=== PATIENT | male | born 1995 | race Caucasian/White ===

== ENCOUNTER 2017-10-05 09:43 | Emergency (ER) | payer OTHER ==
[2017-10-05] MEDS ORDERED: DEXAMETHASONE 10 MG/ML VIAL PO STA (10:40)
--- NOTE | 2017-10-05 10:54 | ED Physician Documentation ---
History of Present Illness - Stated complaint Stated Complaint: SORE THROAT - Chief complaint Chief Complaint: Heent - Additonal information Additional information: hx from pt 21 male sore throat X 3 days no fever no ear pain no cough no NVD Review of Systems Constitutional: denies: Fever Ears: denies: Ear pain Throat: reports: Sore throat Respiratory: denies: Cough GI: denies: Nausea, Vomiting, Diarrhea Immunocompromised: denies: Immunocompromised PD PAST MEDICAL HISTORY - Past Medical History Past Medical History: No - Past Surgical History Past Surgical History: Yes - Present Medications Home Medications: Ambulatory Orders Medication Instructions Recorded Confirmed Amoxicillin 500 mg PO Q8H #30 capsule 10/05/17 - Allergies Allergies/Adverse Reactions: Allergies Allergy/AdvReac Type Severity Reaction Status Date / Time shellfish derived Allergy Hives Verified 10/05/17 09:56 silver Allergy Rash Verified 10/05/17 09:56 - Social History Does the pt smoke?: Yes Smoking Status: Current every day smoker Does the pt drink ETOH?: No Does the pt have substance abuse?: No - Immunizations Immunizations are current?: Yes PD ED PE NORMAL - Vitals Vital signs reviewed: Yes - HEENT HEENT: Atraumatic, Moist mucous membranes. No: Pharynx benign (markedly enlarged erythematous tonsils with exudate, no trismus, no [employer]) - Neck Neck: Supple, no meningeal sign. No: No adenopathy (mild anterior no pasterior) - Cardiac Cardiac: RRR - Respiratory Respiratory: No respiratory distress, Clear bilaterally - Abdomen Abdomen: Non tender, No organomegaly Results - Vitals Vitals: Vital Signs - 24 hr 10/05/17 09:53 Temperature 37.3 C Heart Rate 83 Respiratory 16 Rate Blood Pressure 116/70 O2 Saturation 99 Oxygen O2 Source Room air - Labs Labs: Laboratory Tests 10/05/17 10:24 Group A Strep Rapid Negative PD MEDICAL DECISION MAKING - ED course ED course: pt meets all centor criteria for strep so will tx Departure - Departure Disposition: 01 Home, Self Care Clinical Impression: Pharyngitis Qualifiers: Pharyngitis/tonsillitis etiology: unspecified etiology Qualified Code(s): J02.9 - Acute pharyngitis, unspecified Condition: Good Instructions: ED Strep Pharyngitis Poss Prescriptions: Amoxicillin 500 mg PO Q8H #30 capsule Comments: The rapid strep test was negative but you have all the clinical criteria for strep throat so I have prescribed antibiotics The steroids we gave you in the ER should help decrease the pain and swelling Rest and drink plenty of fluids Motrin tylenol and throat lozenges as needed for pain Follow up PMD as neded Return if worse
[2017-10-05 11:16] VITALS: BP 110/76
== END 2017-10-05 11:15 | disposition home or self-care (01) ==
LOC: ED 09:43
DX: J02.9 Acute pharyngitis, unspecified (principal); F17.200 Nicotine dependence, unspecified, uncomplicated
CPT/HCPCS: 87070; 87077; 87430; 99283

== ENCOUNTER 2018-04-07 12:25 | Emergency (ER) | payer OTHER ==
[2018-04-07] MEDS ORDERED: KETOROLAC 60 MG/2 ML VIAL IM STA (13:16)
--- NOTE | 2018-04-07 13:26 | XRAY Report ---
Reason: Trauma Procedure Date: 04/07/2018 Accession Number: [id number] / [id number] Procedure: XR - Knee 4 View RT CPT Code: FULL RESULT: EXAM: RIGHT KNEE RADIOGRAPHY EXAM DATE: 04/07/2018 01:11 PM. CLINICAL HISTORY: Trauma. COMPARISON: None. TECHNIQUE: 4 views. FINDINGS: Bones: There are findings of previous knee surgery with a metallic surgical structure lateral to the lateral femoral condyle. No cortical step-off or acute fracture. Joints: There is a moderate to large sized joint effusion. There is no dislocation. Soft Tissues: Otherwise unremarkable. IMPRESSION: Moderate to large joint effusion. No acute fracture. RADIA
--- NOTE | 2018-04-07 14:27 | ED Physician Documentation ---
History of Present Illness - Stated complaint Stated Complaint: LEG PX/2ND GLF - Chief complaint Chief Complaint: Ext Problem - Additonal information Additional information: hx from pt 9 weeks s/p ACL surgery [facility] fell on stairs and hyperflexed his knee sig pain and swelling no other injury Review of Systems Musculoskeletal: reports: Joint pain PD PAST MEDICAL HISTORY - Past Medical History Past Medical History: No - Past Surgical History Past Surgical History: Yes Ortho: ACL reconstruction - Present Medications Home Medications: Ambulatory Orders Medication Instructions Recorded Confirmed Amoxicillin 500 mg PO Q8H #30 capsule 10/05/17 Ibuprofen [Motrin] 800 mg PO Q8H PRN #30 tablet 04/07/18 - Allergies Allergies/Adverse Reactions: Allergies Allergy/AdvReac Type Severity Reaction Status Date / Time shellfish derived Allergy Hives Verified 04/07/18 12:35 silver Allergy Rash Verified 04/07/18 12:35 - Social History Does the pt smoke?: No Smoking Status: Former smoker Does the pt drink ETOH?: No Does the pt have substance abuse?: No - Immunizations Immunizations are current?: Yes - POLST Patient has POLST: No PD ED PE NORMAL - Vitals Vital signs reviewed: Yes - Extremities Extremities: Other (R knee: + effusion, ACL endpoint, painful ROM, no deformity, MSV intact) Results - Vitals Vitals: Vital Signs - 24 hr 04/07/18 12:33 Temperature 36.7 C Heart Rate 93 Respiratory 16 Rate Blood Pressure 124/86 H O2 Saturation 98 Oxygen O2 Source Room air - Rads (name of study) knee Radiology: See rad report (large joint effusion, no fx) PD MEDICAL DECISION MAKING - Sepsis Event Vital Signs: Vital Signs - 24 hr 04/07/18 12:33 Temperature 36.7 C Heart Rate 93 Respiratory 16 Rate Blood Pressure 124/86 H O2 Saturation 98 Oxygen O2 Source Room air Departure - Departure Disposition: 01 Home, Self Care Clinical Impression: Knee sprain Qualifiers: Encounter type: initial encounter Involved ligament of knee: unspecified ligament Laterality: right Qualified Code(s): S83.91XA - Sprain of unspecified site of right knee, initial encounter Condition: Good Instructions: ED Sprain Knee Follow-Up: HALEY Pandya [Provider Group] Prescriptions: Ibuprofen [Motrin] 800 mg PO Q8H PRN #30 tablet PRN Reason: Pain Comments: The ACL feels intact on exam and the xray shows no bony damage Recommend and CHHAYA wrap ice and elevation to decrease the swelling Motrin 800 mg with breakfast lunch and dinner as needed for the pain Crutches to minimize weight bearing stress until able to walk comfortably. Follow up with your youth specialist Forms: Activity restrictions
[2018-04-07 14:44] VITALS: BP 128/80
== END 2018-04-07 14:53 | disposition home or self-care (01) ==
LOC: ED 12:25
DX: S83.91XA Sprain of unspecified site of right knee, initial encounter (principal); Z87.891 Personal history of nicotine dependence; Z98.890 Other specified postprocedural states; W10.9XXA Fall (on) (from) unspecified stairs and steps, initial encounter; X50.1XXA Overexertion from prolonged static or awkward postures, initial encounter
CPT/HCPCS: 96372; 99283